=== PATIENT | female | born 1975 | race Caucasian/White ===

== ENCOUNTER 2021-04-09 12:28 | Outpatient (CLI) | payer OTHER, SELFPAY ==
--- NOTE | 2021-04-10 10:41 | WPDPFTINT ---
PFT Procedure Performed PFT Procedure Performed Spirometry with Pre/Post Bronchodilator Plethysmography (Lung Vol) Diffusing Cap (DLCO) Flow Vol Loop PFT Interpretation This is a pulmonary function test with pre and post-bronchodilator spirometry, plethysmography and diffusing capacity. The test was performed and results interpreted in accordance with the 2019 and 2005 ATS/ERS Task Force guidelines respectively using the Global Lung Function Initiative-2012 reference equations. Patient demonstrated good effort and cooperation. Reproducibility criteria were met. The quality of the spirometry maneuver was Grade A. Findings: Spirometry: The contour the inspiratory and expiratory flow tracing is normal. The pre bronchodilator FVC is 3.16 L, 97% predicted. The pre bronchodilator FEV1 is 2.60 L, 99% predicted. The FEV1: FVC ratio is 82%. The post bronchodilator FVC is 3.18 L, representing 1% increase. The post bronchodilator FEV1 is 2.64 L, representing a 2% increase. The post bronchodilator FEV1: FVC ratio is 83%. Plethysmography: The total lung capacity is 4.21 L, 89% predicted. The functional residual capacity is 1.87 L, 71% predicted. The residual volume is 1.05 L, 64% predicted. Diffusion capacity: The absolute diffusion capacity is 17.5, 79% predicted. The diffusing capacity corrected for alveolar volume is 4.33, 92% predicted. Impression: The spirometry is normal without evidence of an obstructive abnormality. There is no significant improvement after inhaling a single dose of albuterol. The lung volumes are normal. The diffusing capacity is normal. There are no prior studies for comparison
== END 2021-04-09 12:29 | disposition home or self-care (01) ==
LOC: ANHPFT 12:32
PROVIDERS: PCP Internal Medicine; Visit Provider Physician Assistant Medical
DX: R06.02 Shortness of breath (principal)
CPT/HCPCS: 94060; 94726; 94729

== ENCOUNTER 2022-04-16 19:47 | Emergency (ER) | payer OTHER, SELFPAY ==
--- NOTE | ~2022-04-16 | XR_ITS ---
EXAMINATION: XR chest 1V portable 04/16/2022 20:16 INDICATION: Left-sided chest pain PROCEDURE: AP portable chest COMPARISON: No prior studies for comparison. FINDINGS: The lungs are clear. The cardiomediastinal silhouette is within normal limits. There are no pleural effusions. There is no pneumothorax suspected. IMPRESSION: 1: NO ACUTE CARDIOPULMONARY DISEASE. Reviewed, dictated and finalized at location A. MANAGER
--- NOTE | 2022-04-16 19:50 | ECG_ITS ---
Measurements Intervals [place] Rate: 92 P: 38 DE: 154 QRS: 8 QRSD: 89 T: 5 QT: 349 QTc: 434 Interpretive Statements SINUS RHYTHM BORDERLINE T WAVE ABNORMALITY- INFERIOR LEADS BASELINE ARTIFACT- I, II, III, AVR, AVL, AVF, V4 BORDERLINE ECG NO PREVIOUS ECG AVAILABLE FOR COMPARISON Electronically Signed On 04-17-2022 8:09:24 TRANSPORT CONDUCTOR by Nikolas Cross D.O.
[2022-04-16 19:57] VITALS: BP 148/107; PULSE 92; PULSE 97; RESP 20; TEMP 36.3; O2SAT 100
--- NOTE | 2022-04-16 20:09 | ED.CHESTPAIN ---
HPI - Chest Pain General Chief Complaint: Chest Pain Stated Complaint: chest pains Time Seen by Provider: 04/16/22 19:51 Source: patient and family Mode of arrival: ambulatory Limitations: no limitations History of Present Illness HPI narrative: This is a 47-year-old female with no significant past medical history nonsmoker presents with a 2 day history of left upper chest discomfort with no radiation of her pain no diaphoresis no nausea vomiting no shortness of breath. The patient was concerned that blood pressure was elevated her diastolic blood pressure was about 105, with no cough no congestion no fever chills no abdominal pain no flank pain no dysuria. MD complaint: chest discomfort Onset (ago): day(s) Timing of current episode: constant Prior episodes: No Onset: during rest Pain location: left chest Pain radiation: none Severity: mild Quality: aching Relieving factors: nothing Exacerbating factors: palpation Related Data Home Medications Medication Instructions Recorded Confirmed No Home Medications 04/16/22 04/16/22 Allergies Allergy/AdvReac Type Severity Reaction Status Date / Time No Known Allergies Allergy Verified 04/16/22 19:57 Review of Systems Review of Systems: All systems reviewed & are unremarkable except as noted in HPI and below PMFSH Past Medical History Medical History Patient denies medical problems Exam Const: General: cooperative, healthy appearing, comfortable, no acute distress, well developed, alert and awake HENMT: Head: normal to inspection Ears: hearing grossly normal bilaterally Face/Nose/Sinus: Normal external nose present Face and sinus: normal facial exam Mouth: Yes Normal oral and palatal mucosa present and Yes mouth trauma Throat: posterior oropharynx normal Eyes: General: appearance normal, both eyes and all related structures Visual Cadet: normal visual cadet by confrontation Periorbital: periorbital findings normal Eyelids: eyelids normal Conjunctivae: conjunctivae normal Sclera: sclerae normal Pupils: Equal, round and reactive pupils present EOM: EOMs intact bilaterally Neck: Neck: normal visual inspection Thyroid: thyroid normal Carotids: normal carotid upstroke Lymphatic: no lymphadenopathy noted Chest: Chest palpation & inspection: normal inspection of the chest and normal palpation of entire chest wall Resp: Effort & Inspection: normal respiratory effort and able to speak in complete sentences Cardio: Jugular venous distension: no JVD Palpation: normal PMI Rate: regular rate Rhythm: regular rhythm GI: Inspection: normal to inspection Auscultation: normal bowel sounds Back/Spine/Pelvis: Back: no CVA tenderness Skin: General skin exam: normal color and no rashes or lesions noted Neuro: General: oriented to person and oriented to place Extrem: Right lower extremity: normal to inspection, full ROM and normal capillary refill Psych: Appearance: grossly normal and well kempt Mental Status: mental status grossly normal Course Course Emergency Course: EKG chest x-ray and labs reviewed with patient and family and everything was within normal limits patient does have a blood pressure 148/107 which is a typically high for the patient and advised her to follow-up with her primary Critical Care Time Critical Care Time Critical Care Time: No Discharge Plan Discharge Clinical Impression: Atypical chest pain Patient Disposition: Home, Self-Care Condition: Stable Instructions: Antibiotic Form, Chest Wall Pain (ED) Additional Instructions: advised to take Tylenol or Motrin for chest wall pain and follow-up with primary care physician to assess blood pressure elevation. Prescriptions: No Action No Home Medications Follow-up/Referrals: UNKNOWN,DOCTOR [Primary Care Provider] - Time of Disposition: 20:56
[2022-04-16 20:26] LABS: Basophils Absolute Auto 0.04 K/mm3 (0.00-0.10); Basophils Percent Auto 0.5 % (0.0-1.0); Eosinophils Absolute Auto 0.17 K/mm3 (0.02-0.50); Hemoglobin 12.4 g/dL (12.0-15.0); Immature Granulocyte Absolute 0.02 K/mm3 (0.00-0.00); Immature Granulocyte Percent A 0.2 % (0.0-0.0); Lymphocytes Absolute Auto 2.73 K/mm3 (1.10-4.50); Lymphocytes Percent Auto 32.7 % (18.0-42.0); Mean Corpuscular HGB Conc 32.6 g/dL (32.0-36.0); Mean Corpuscular Hemoglobin 27.3 pg (27.0-31.0); Mean Corpuscular Volume 83.5 fL (78.0-102.0); Monocytes Absolute Auto 0.44 K/mm3 (0.10-0.90); Monocytes Percent Auto 5.3 % (2.0-11.0); Neutrophils Percent Auto 59.3 % (50.0-70.0); Platelet Count Result 265 K/mm3 (150-420); Red Blood Count 4.55 M/mm3 (4.20-5.40); Red Cell Distribution Width 12.7 % (11.6-14.4); White Blood Count 8.4 K/mm3 (4.8-10.8)
[2022-04-16 20:41] LABS: D Dimer 0.41 mg/L (0.19-0.50); Partial Thromboplastin Time 25.7 SEC (23.90-30.70); Prothrombin Time 10.9 Seconds (9.50-12.10)
[2022-04-16 20:50] LABS: Alanine Aminotransferase 20 U/L (14-59); Albumin Level 3.5 g/dL (3.4-5.0); Alkaline Phosphatase 51 U/L (46-116); Anion Gap 6 mmol/L (8-16); Aspartate Amino Transferase 11 U/L (15-37); Bilirubin,Total 0.2 mg/dL (0.00-1.00); Blood Urea Nitrogen 21 mg/dL (7-18); Calcium 8.2 mg/dL (8.5-10.1); Carbon Dioxide 29 mmol/L (21-32); Chloride 103 mmol/L (98-108); Estimated CRCL calculation 61 ml/min; Estimated Glomerular Filt Rate 59; Glucose 106 mg/dL (70-99); Lipase 42 U/L (16-77); NT Pro B Type Natriuretic Pept 85 pg/mL (0-125); Osmolality Calculated 289 mOsm/kg (285-295); Potassium 3.5 mmol/L (3.5-5.1); Sodium 138 mmol/L (136-145); Total Protein 6.7 g/dL (6.4-8.2); Troponin I 9.4 ng/L (0.00-60.4)
[2022-04-16 21:01] VITALS: BP 156/100; PULSE 87; RESP 20; TEMP 36.6; O2SAT 100
== END 2022-04-16 21:08 | disposition home or self-care (01) ==
PROVIDERS: Emergency Provider Emergency Medicine
DX: R07.89 Other chest pain (principal)
CPT/HCPCS: 36415; 71045; 80053; 83690; 83880; 84484; 85025; 85380; 85610; 85730; 93005; 99284

== ENCOUNTER 2022-10-29 16:25 | Outpatient (CLI) | payer OTHER, SELFPAY ==
--- NOTE | ~2022-10-29 | MR_ITS ---
EXAMINATION: MR knee RT wo con DATE: 10/29/2022 17:59 INDICATION: R22.41 - Localized swelling, mass and lump, right lower limb, history of injury 423, cont inued swelling and pain TECHNIQUE: Magnetic resonance imaging (MRI) of the right knee was performed without intravenous contr ast. Sequences included axial PD-weighted FS FSE, coronal PD-weighted FSE and PD-weighted FS FSE, sag ittal PD-weighted FSE, and sagittal T2-weighted FS FSE. COMPARISON: X-ray knee 10/16/2022 FINDINGS: Medial compartment: Complex tear of the posterior horn with vertical and oblique components, and displacement of a articu lar sided flap of tissue medially. Diffuse severe cartilage thinning. Focal full-thickness cartilage defect on the weightbearing surface of the MFC. Tiny 4 mm mm cortical depression on the weightbearing surface of the MFC. Mild subjacent marrow edema. Lateral compartment: Meniscus intact. Moderate diffuse cartilage thinning Patellofemoral compartment: Cartilage and retinacula intact. Ligaments and tendons: The ACL is thinned, with abnormal signal at its origin and insertion. Mild proximal thickening of the MCL, with mild abnormal signal superficial and deep to the fibers. The PCL, and LCL are intact. Radha ining flexor and extensor tendons are intact. Fluid: Moderate volume joint fluid. Moderate-sized Marte's cyst.. Osseous/other: No suspicious focal or diffuse marrow signal. IMPRESSION: Complicated tear of the posterior horn, medial meniscus, with a displaced flap of meniscal tissue. Tiny osteochondral lesion on the MFC, likely old, no displaced fragment. Partial tears of the ACL and MCL. Moderate joint effusion. Moderate Marte's cyst. Reviewed, dictated and finalized at location K. IMPRESSION: Complicated tear of the posterior horn, medial meniscus, with a displaced flap of meniscal tissue. Tiny osteochondral lesion on the MFC, likely old, no displaced fragment. Partial tears of the ACL and MCL. Moderate joint effusion. Moderate Mrate's cyst.
== END 2022-10-29 16:26 | disposition home or self-care (01) ==
PROVIDERS: PCP Physician Assistant Medical; Visit Provider Physician Assistant Medical
DX: S83.241A Other tear of medial meniscus, current injury, right knee, initial encounter (principal); X58.XXXA Exposure to other specified factors, initial encounter; M25.461 Effusion, right knee; M71.21 Synovial cyst of popliteal space [Baker], right knee
CPT/HCPCS: 73721

== ENCOUNTER 2022-12-17 03:26 | Day surgery (SDC) | payer OTHER, SELFPAY ==
[2022-12-08 13:23] VITALS: BMI 35.7
--- NOTE | 2022-12-08 13:36 | PC.NURSE ---
Report to the Outpatient Waiting Room, entrance under the green pavilion located off [facility], at time _0830_ on date _[id number]_. Planned Procedure Time: _1030_. Time changes happen often and if your time is changed the preop area will call you the afternoon before. - You and your visitor will be asked to self-screen and do not enter if you have any COVID symptoms. - A mask is optional within the hospital at this time. Patients may have clear liquids (water, carbonated beverages, clear teas, apple juice) until 3 hours prior to surgery with a maximum of 20 ounces. - No food from midnight until time of surgery Take the following medications with a SIP of water the morning of surgery: __Propanolol DO NOT STOP ANY OF YOUR OTHER PRESCRIPTION MEDICATIONS PRIOR TO SURGERY ?EXCEPT THE FOLLOWING Medications to discontinue per physician ____None Date to take last dose Please no make-up, nail [place] ca[place] islander, hairspray, perfume, deodorant, or body powder the day of surgery. No jewelry (including any body piercings) or valuables the day of surgery, leave them at home. Please take a shower or bath the night before, or the morning of, surgery with an antibacterial soap. Wear comfortable, loose fitting clothing. - Jewelry must be removed prior to entering the operating room. Rings and piercings that are not removed may be cut off. - The hospital will not accept responsibility for valuables. - Please leave all valuables, including medications, at home the day of surgery. If you are going home after surgery, a licensed team truck driver must drive you home. - NO public transportation without another adult if you receive anesthesia. - We recommend that an adult stay with you for 24 hours following discharge. - We also recommend that you do not drive, make important decision, drink alcoholic beverages, or take any drugs that were not prescribed by your health care provider for at least 24 hours after your discharge time. Follow any additional instructions given to you from your surgeon. If you or anyone in your household have experienced Covid symptoms in the past week, please notify your surgeon or the nurse liaison at the phone number below for possible testing. Telephone instructions given to __Patient__and asked if any additional questions and then verbalized understanding. Patient advised to call surgeon office or pre surgery nurse liaison [phone] if any additional questions.
[2022-12-17] VITALS (7 sets, daily range): BP systolic 100–149; BP diastolic 71–106; PULSE 52–73; RESP 12–18; TEMP 36.2–36.4; O2SAT 98–100
--- NOTE | 2022-12-17 07:12 | WPDHPUPDATE1 ---
History and Physical Update Update Date/Time: 12/17/22 07:12 History and Physical has been reviewed, including an updated exam of the patient. There are NO changes in the patient's condition. Risks, benefits, and alternatives have been discussed and questions answered. Patient agrees to proceed with procedure.
[2022-12-17] MEDS: LACTATED RINGERS 1,000 ML 30 ML IV CONT ×2 (08:45→10:48)
[2022-12-17] MEDS: ACETAMINOPHEN 500 MG TABLET 1000 MG PO (09:31)
[2022-12-17] MEDS: KETOROLAC 15 MG/ML VIAL (*BKC) IV PUSH (09:31)
[2022-12-17] MEDS: SCOPOLAMINE 1.5 MG PATCH TRANSDERM (09:50)
--- NOTE | 2022-12-17 09:50 | WPDANESEPPF ---
Anes - Initial Pre Proc Eval Procedure: Operation Date: 12/17/22 10:30 Proposed Procedures p Right Knee Arthroscopy, Partial Medial Meniscectomy - Parth Caceres MD Date/Time: 12/17/22 09:50 Surgeon: Parth Caceres MD Pre Op Diagnosis: rt medial meniscus tear Patient Data Age: 47 Gender: F Height: 1.57 m Weight: 95.2 kg Last Vital Signs Temp 36.4 C L 12/17/22 09:26 Pulse 73 12/17/22 09:26 Resp 16 12/17/22 09:26 BP 149/97 H 12/17/22 09:26 Pulse Ox 98 12/17/22 09:26 O2 Del Method Room Air 12/17/22 09:26 Allergies Allergy/AdvReac Type Severity Reaction Status Date / Time naproxen [From Aleve] AdvReac upset Verified 12/17/22 09:25 stomach and off Home Medications Medication Instructions Recorded Confirmed Type propranolol 80 mg capsule,24 80 mg PO DAILY #90 caps 10/16/22 12/17/22 Rx hr,extended release hydrocodone 5 mg-acetaminophen 325 1 - 2 tablet PO Q4-6H PRN pain #30 12/17/22 Rx mg tablet tabs Patient hx anesthesia problems: none Family hx anesthesia problems: none Results Review: All pre-operative results and documents have been reviewed as part of the pre-operative evaluation. [facility] Past Medical History Medical History Family history of colon cancer Migraine (~04/2003) Patient denies medical problems Saline breast implant in situ Surgical History Surgical History No pertinent past surgical history Family History Family History Father No problems noted. Sibling Hypothyroidism Social History Social History Years smoked: 6 Smoking status: Former smoker Tobacco type: cigarettes Smoking end date: 12/08/94 Alcohol intake: current Alcohol use details: 2 times a month Substance use: never Substance use type: does not use Lack of Transportation: No Lack of Food: Never True Current Housing: I Have Housing Concerned About Future Housing: No Difficulty Paying Gas/Electric Bills: No Difficulty Paying for Meds: No Currently Unemployed: No Difficulty w/ Childcare or Family Care: No Living arrangements: with family Occupation/Education: retired Gender identity (if verbalized by the patient): Female Spiritual care concerns: No Anes - Eval Final PreProcedure Day of Procedure 12/17/22 09:50 Patient weight: obese Heart: regular rate and rhythm Lungs: clear to auscultation Airway: Mallampati scale class II Neurological: alert and oriented Last oral intake: >/= 8 hours ASA classification: II Emergent: no Anesthetic plan: proceed Anesthesia type and monitoring: general LMA and standard monitoring Results Review: All pre-operative results and documents have been reviewed as part of the pre-operative evaluation. Informed Consent: The patient's anesthetic plan and its attendant risks and benefits were discussed with the patient/family/POA. Questions were solicited and answers provided to the satisfaction of the patient/family/POA.
[2022-12-17] MEDS: ceFAZolin 2 GM/D5W 50 ML 2 GM/50 ML BAG IVPB (09:55)
[2022-12-17] MEDS: BUPIVACAINE/EPINEPHRINE 0.5% 50 ML VIAL 30 ML INFILTRATE (10:18)
--- NOTE | 2022-12-17 16:21 | P.OP_ITS ---
Procedure Note - Detailed Date of Procedure 12/17/22 Pre-op Diagnosis Right knee medial meniscus tear. Post-op Diagnosis Same Procedure Performed Arthroscopic partial medial meniscectomy right knee. Surgeon Parth Caceres MD Anesthesia General Findings Complex tear posterior horn medial meniscus. Medial femur chondromalacia grade 3, medial tibia grade 0. Lateral femur chondromalacia grade 0, lateral tibia grade 0. Patellar grade 0, trochlea grade 0. Description of Procedure The patient was identified and the surgical site confirmed and signed in the preoperative holding area. Antibiotics were started per protocol. She was brought to the operative room and transferred to the OR table. A general anesthetic was administered. Supine position with the operative lower extremity position in the leg zaragoza after placement of a well padded tourniquet. The leg support was lowered and the contralateral limb was supported with a soft bolster. The knee was prepped and draped in the usual sterile fashion. A time- out was performed. The portal sites were marked and infiltrated with 0.5% Marcaine 20 mL. The limb was exsanguinated and the tourniquet inflated to 300 mL Hg. Standard inferolateral and inferomedial portals were established. Inflow was obtained with the saline pump. The camera was introduced. Diagnostic inspection of the joint was accomplished. The meniscus was debrided with the arthroscopic shaver and punches until stable. Gentle chondroplasty was performed on the medial femoral condyle. The arthroscopic instruments were removed. The tourniquet released and wounds closed with subcutaneous 4-0 Monocryl absorbable suture. Steri strips and a sterile dressing were applied. A light elastic wrap was placed. The patient was extubated and brought to the recovery room in stable condition. Estimated Blood Loss -5.0 Drains No Complications No immediate complications Condition Stable Disposition PACU [facility] Billing Surgery - Charge Forward: Surgery Billing
== END 2022-12-17 12:50 | disposition home or self-care (01) ==
PROVIDERS: PCP Physician Assistant Medical; Visit Provider Orthopaedic Surgery
PROC: (CPT 29870; principal; 2022-12-17 10:30)
DX: S83.231A Complex tear of medial meniscus, current injury, right knee, initial encounter (principal); M94.261 Chondromalacia, right knee; W19.XXXA Unspecified fall, initial encounter; Z87.891 Personal history of nicotine dependence; E66.9 Obesity, unspecified; Z68.38 Body mass index [BMI] 38.0-38.9, adult
CPT/HCPCS: 29880; A9270; J0690; J1100; J1885; J2250; J2405; J2704; J3010; J7120

== ENCOUNTER 2023-01-27 16:30 | Outpatient (RCR) | payer OTHER, SELFPAY ==
--- NOTE | 2022-12-24 16:37 | PTOPEVAL1 ---
Assessment and note entered by Roxana Rey, PT Evaluation Information Assessment Status Evaluation Diagnosis menisectomy 12/17/22 Therapy Conditions Gait abnormality, weakness, pain in right knee Subjective Information Is sore from surgery. Difficulty walking leg was locking up . Can't do stairs yet and laundry is downstairs. Watches her grandkids during the day, will be returning to that this coming week. Used to be able to get up and down from the floor wihtout difficulty, currently is unable to do that Reported Pain Level Pain Score 1: Self Report Assessment PT Clinical Summary Pt presents s/p menisectomy 12/17/22. Gabriel's significantly reduced ROM of the right knee, abnormal gait pattern, and high reports of pain all limiting her ability to perform her ADLs and activities such as caring for her grandchildren during the week. Pt will thus benefit from physical therapy to address deficits and improve function. Plan of Care Interventions Electrical Stimulation,Gait Training,Hot Pack/Cold Pack,Manual Therapy,Neuro Re-education,Patient/ Caregiver Educati,Therapeutic Activities, Therapeutic Exercise,Ultrasound PT Services Indicated Yes Treatment Frequency and 2x weekly x 6 weeks Duration These treatments will address the objective and functional deficits as defined above. The patient will be advanced safely and appropriately in order for the patient to progress towards his/her prior level of function. Additional exercises will be introduced and as well as a comprehensive home exercise program upon discharge, if needed, ?to ensure carryover of functional gains achieved in the clinic. This treatment plan has been reviewed and agreement upon by the patient.
--- NOTE | 2022-12-24 16:39 | OPREHPOC ---
Outpatient Therapy Plan of Care This is a Multidisciplinary Plan of Care that may contain components documented by all disciplines (PT, OT, and ST.) PT Problem 1 PT Problem #1 Knowledge Deficit PT Goal 1 Goal Pt will be independent in HEP Pt will verbalize understanding of diagnosis and prognosis Target Visit 12 PT Problem 2 PT Problem #2 Pain PT Goal 1 Goal Pt will report greatest pain level at 5/10 or less Target Visit 12 PT Goal 2 Goal Pt will report resolution of pain Target Visit 24 PT Problem 3 PT Problem #3 Impaired Gait PT Goal 1 Goal Pt will demo appropriate gait with equal stance time and lynn Target Visit 12 PT Goal 2 Goal Pt will demo appropriate knee extension on initial contact phase of gait Target Visit 24 PT Problem 4 PT Problem #4 Impaired Range of Motion PT Goal 1 Goal Pt will demo AROM of 10-90 Target Visit 12 PT Goal 2 Goal Pt will demo AROM of 0-120 Target Visit 24
--- NOTE | 2023-01-11 11:22 | PCPTNOTE ---
Patient called & cancelled scheduled appointment this date due to having a migraine
--- NOTE | 2023-01-20 17:04 | PTOPPROG ---
Assessment and note entered by Roxana Rey, PT Assessment Status Progress Report Diagnosis menisectomy 12/17/22 Therapy conditions Gait, weakness, oth. abnormalities of mobility Subjective Information Pt reports has not felt any locking up in the last 1.5 weeks. Is able to get up and down from the floor but it ain't pretty , can't kneel on the knee. Is better able to get up and downs steps but is slow. Swelling still present No longer using pain medication or Ibuprofen for her knee. Return to doctor 01/28/23 Self-percieved improvement: 60-70% Assessment PT Clinical Summary Patient demos multiple areas of significant improvement including pain, ROM, and gait. She reports cont difficluty kneeling on knee, continued swelling but has met multiple short term and fci goals from evaluation. Pt goals updated, HEP updated, and pt frequency reduced. Pt to return to doctor 01/28/23. Will continue therapy with focus on next phase including strengthening and gait Plan of Care Interventions Electrical Stimulation,Gait Training,Hot Pack/Cold Pack,Manual Therapy,Neuro Re-education,Patient/ Caregiver Educati,Therapeutic Activities, Therapeutic Exercise,Ultrasound PT Services Indicated Yes Treatment Frequency and 1x weekly x 4 weeks Duration These treatments will address the objective and functional deficits as defined above. The patient will be advanced safely and appropriately in order for the patient to progress towards his/her prior level of function. Additional exercises will be introduced and as well as a comprehensive home exercise program upon discharge, if needed, ?to ensure carryover of functional gains achieved in the clinic. This treatment plan has been reviewed and agreement upon by the patient.
--- NOTE | 2023-02-01 15:17 | PTOPDC ---
Assessment and note entered by Roxana Rey, PT Assessment Status Discharge - Pt Not Present Diagnosis menisectomy 12/17/22 Subjective Information Is able to do her steps but is slow and cautious going down steps. Was able to get up and down from floor today without difficulty. Knee still feels different than left knee with walking Assessment PT Clinical Summary Pt did very well with therapy as of last visit. Called and reported she had her return to doctor appointment and was released from therapy. Thus we are closing her plan of care at this time. Thank you for this referral If was a eric getting to know Ingrid!
== END 2023-02-18 08:05 | disposition home or self-care (01) ==
LOC: ANHHIPT 16:30
PROVIDERS: PCP Physician Assistant Medical; Visit Provider Orthopaedic Surgery
DX: Z48.89 Encounter for other specified surgical aftercare (principal)
CPT/HCPCS: 97014; 97110; 97112; 97116; 97161; 97530; 97750; G0283

== ENCOUNTER 2024-12-29 10:52 | Outpatient (CLI) | payer OTHER, SELFPAY ==
--- NOTE | ~2024-12-29 | US_ITS ---
EXAMINATION: US soft tissue head and neck DATE: 12/29/2024 11:21 INDICATION: Right neck lump. TECHNIQUE: Multiple grayscale and Doppler ultrasound images of the head and neck were obtained. COMPARISON: None FINDINGS: The right submandibular gland is normal. There is no abnormal mass or lymphadenopathy in right neck in the patient's area of concern. IMPRESSION: 1. No abnormal mass or lymphadenopathy in right neck in the patient's area of concern. Reviewed, dictated and finalized at location E. IMPRESSION: 1. No abnormal mass or lymphadenopathy in right neck in the patient's area of c oncern.
--- NOTE | ~2024-12-29 | US_ITS ---
EXAMINATION: US thyroid DATE: 12/29/2024 11:22 INDICATION: Right neck lump. TECHNIQUE: Multiple ultrasound images of the thyroid were obtained. COMPARISON: None. FINDINGS: The right thyroid lobe measures 3.6 x 1.3 x 1.4 cm cm. The left thyroid lobe measures 4.3 x 1.5 x 1.37 m cm. There is normal echotexture and echogenicity throughout the thyroid gland. No discrete nodules identified. Normal vascular flow is present. IMPRESSION: 1. Normal thyroid. Reviewed, dictated and finalized at location E. IMPRESSION: 1. Normal thyroid.
--- OUTSIDE RECORDS SUMMARY | 2024-12-29 10:55 | XMS_ITS | Encounter Summary ---
Author Organization [facility] Address [address] [place] [id number] Care Team Providers Care Knockdown Worker Name Role Phone Jeanette Davenport PA-C Primary Care Provider [phone] Reason for Visit * Reason Onset Date Comments Information 05/22/2022 Encounter Details Date Type Department Care Team (Late st Contact Info) Description 05/22/2022 [employer] Message Enc [facility] [facility], [facility] [address] [place], [place] [id number] James Willingham MD [facility]. [facility] [address] [place], [place] [id number] Stress test Social History Tobacco Use Types Packs/Day Years Used Date Smoking Tobacco: Former Cigarettes 1 05/04/1988 - 03/04/1995 Smokeless Tobacco: Never Alcohol Use Standard Drinks/Week Comments Yes 1.7 (1 standard drink = 0.6 oz p ure alcohol) SELDOM PHQ-2 Answer Date Recorded PHQ-2 Score - If the patient scores above 3, please move on to questions 3-9 0 08/08/2021 Comments Unknown Sex and Gender Information Value Date Recorded Sex Assigned at Not on file Legal Sex Female 7:49 PM CDT Gender Identity Not on file Sexual Orientation Not on file COVID-19 Exposure Response Date Recorded In the last 10 days, have yo u been in contact with someone who was confirmed or suspected to have Coronavirus/COVID-19? No / Unsure 05/19/2022 10:57 AM [employer] documented as of this encounter Plan of Treatment Not on file documented as of this encounter Visit Diagnoses Not on filedocumented in this encounter Care Teams Knockdown Worker Relationship Specialty Start Date End Date Jeanette Davenport PA-C PCP - General NURSE PRACTITIONER 01/31/20 documented as of this encounter
--- OUTSIDE RECORDS SUMMARY | 2024-12-29 10:55 | XMS_ITS | Clinical Summary ---
Author Organization [facility] Address [address] [place] [id number] Care Team Providers Care Grinder Operator Name Role Phone Jeanette Davenport PA-C Primary Care Provider [phone] Allergies No known active allergies Medications No known medications Active Problems Problem Noted Date Diagnosed Date Palpitations 05/19/2022 Resolved Problems Problem Noted Date Diagnosed Date Resolved Date Screen for colon cancer 09/02/2021/07/2022 Overview (09/02/2021): Added automatically from request for surgery [id number] Family History Medical History Relation Comments Early Brother Cardiac arrest a t the age of 42 Heart Attack Brother SUICIDE Father Cancer Mother Bladder and colo n Relation Status Comments Brother Father Mother Alive Social History Tobacco Use Types Packs/Day Years Used Date Smoking Tobacco: Former Cigarettes 1 05/04/1988 - 03/04/1995 Smokeless Tobacco: Never Tobacco Cessation:Counseling Given: No Alcohol Use Standard Drinks/Week Comments Yes 1.7 [...] on file Sexual Orientation Not on file Last Filed Vital Signs Vital Sign Reading Time Taken Comments Blood Pressure 132/84 07/09/2022 9:12 AM CDT Pulse 87 07/09/2022 9:12 AM CDT Temperature 36.3 C (97.3 F) 08/08/2021 2:34 PM CDT Respiratory Rate - - Oxygen Saturation 98% 07/09/2022 9:12 AM CDT Inhaled Oxygen Concentration - - Weight 90.3 kg (199 lb) 07/09/2022 9:12 AM CDT Height 157.5 cm (5' 2) 07/09/2022 9:12 AM CDT Body Mass Index 36.4 07/09/2022 9:12 AM CDT Plan of Treatment Health Maintenance Due Date Last Done Comments Cervical Cancer Screening Pa p Smear (Age 30 to 64) Every 3 Years 1973 Colorectal Cancer Screening Colonoscopy (10 Years) 1973 Annual Physical 1976 Hepatitis C 1991 DTaP, Tdap and Td Vaccines ( 1 - Tdap) 1992 Hepatitis B Vaccines (1 of 3 - 19+ 3-dose series) 1992 Cervical Cancer Screening Pa p with HPV Testing (Age 30 to 64) Every 5 Years 2003 Cervical Cancer Screening wi th HPV 2003 Mammogram Screening 2013 Pneumococcal Vaccine: 50+ Years (1 of 1 - PCV) 2023 Zoster Vaccines (1 of 2) 2023 COVID-19 Vaccine (3 - 2024-2 6 season) 2024 02/28/2021, 02/07/2021 Meningococcal B Vaccine Aged Out No l onger eligible based on patient's age to complete this topic Meningococcal Vaccine Aged Out No carmen ana maria eligible based on patient's age to complete this topic RSV Immunizations Under 20 Months Aged Out No longer eligible b ased on patient's age to complete this topic Insurance [facility] Care Teams Grinder Operator Relationship Specialty Start Date End Date Jeanette Davenport PA-C PCP - General NURSE PRACTITIONER 01/31/20
== END 2024-12-29 10:53 | disposition home or self-care (01) ==
LOC: CHSIMG 10:53
PROVIDERS: PCP Nurse Practitioner Family; Visit Provider Nurse Practitioner Family
DX: R22.1 Localized swelling, mass and lump, neck (principal)
CPT/HCPCS: 76536

== ENCOUNTER 2025-01-27 08:43 | Day surgery (SDC) | payer OTHER, SELFPAY ==
[2025-01-01 13:37] VITALS: BMI 32.9
[2025-01-16 12:46] VITALS: BMI 33.0
--- NOTE | 2025-01-27 09:54 | WPDANESEPPF ---
Anes - Initial Pre Proc Eval Procedure: Operation Date: 01/27/25 11:00 Proposed Procedures p Screening Colonoscopy - Misael Vo MD Date/Time: 01/27/25 09:54 Surgeon: Misael Vo MD Pre Op Diagnosis: Family Hx of malignant neoplasm of digestive organ Patient Data Age: 49 Gender: F Height: 1.57 m Weight: 81.8 kg Allergies Allergy/AdvReac Type Severity Reaction Status Date / Time naproxen (From Aleve) AdvReac upset Verified 01/27/25 09:46 stomach and off Home Medications ?Medication ?Instructions ?Recorded ?Confirmed ?Type No Home Medications 01/16/25 01/16/25 History Patient hx anesthesia problems: none Family hx anesthesia problems: none Results Review: All pre-operative results and documents have been reviewed as part of the pre-operative evaluation. [facility] Past Medical History Medical History Chest pain, atypical Mass of right knee Right knee pain Screening for colon cancer Tear of medial meniscus of right knee Tear of medial collateral ligament of right knee Migraine (~04/2003) Surgical History Surgical History Hx of meniscectomy of right knee (~12/17/22) No pertinent past surgical history Family History Family History Father No problems noted. Sibling Hypothyroidism Social History Social History (Updated 12/28/24 @ 15:41 by Alexys Robles) Social History: 12/28/24 very confident with medical forms Years smoked: 6 Smoking status: Former smoker Tobacco type: cigarettes Smoking end date: 12/08/94 Alcohol intake: current Alcohol use details: 2 times a month Substance use: never Substance use type: does not use Lack of Transportation: No Lack of Food: Never True Current Housing: I Have Housing Concerned About Future Housing: No Difficulty Paying Gas/Electric Bills: No Difficulty Paying for Meds: No Currently Unemployed: No Education: High School Diploma/GED Difficulty w/ Childcare or Family Care: No Living arrangements: with family Occupation/Education: retired Gender identity (if verbalized by the patient): Female Spiritual care concerns: No Anes - Eval Final PreProcedure Day of Procedure 01/27/25 09:54 Heart: regular rate and rhythm Lungs: clear to auscultation Airway: Mallampati scale class II Neurological: alert and oriented Last oral intake: >/= 8 hours ASA classification: I Emergent: no Anesthetic plan: proceed Anesthesia type and monitoring: monitored anesthesia care Results Review: All pre-operative results and documents have been reviewed as part of the pre-operative evaluation. Informed Consent: The patient's anesthetic plan and its attendant risks and benefits were discussed with the patient/family/POA. Questions were solicited and answers provided to the satisfaction of the patient/family/POA.
[2025-01-27 09:55] VITALS: BP 129/96; PULSE 85; RESP 16; TEMP 36.5; O2SAT 100; BMI 31.9
[2025-01-27] MEDS: LACTATED RINGERS 1,000 ML 150 ML IV CONT (10:11)
--- NOTE | 2025-01-27 11:00 | P.HP_ITS ---
H&P: HPI History of Present Illness Date/Time: 01/27/25 11:00 Chief Complaint: Family history of colon cancer Narrative: This patient has family history of colorectal cancer. her mother had colorectal cancer at age 60. This is her 1st colonoscopy. Review of Systems Review of Systems: All systems reviewed & are unremarkable except as noted in HPI and below PMFSH Past Medical History Medical History Chest pain, atypical Mass of right knee Right knee pain Screening for colon cancer Tear of medial meniscus of right knee Tear of medial collateral ligament of right knee Migraine (~04/2003) Surgical History Surgical History Hx of meniscectomy of right knee (~12/17/22) No pertinent past surgical history Family History Family History Father No problems noted. Sibling Hypothyroidism Social History Social History (Updated 12/28/24 @ 15:41 by Alexys Robles) Social History: 12/28/24 very confident with medical forms Years smoked: 6 Smoking status: Former smoker Tobacco type: cigarettes Smoking end date: 12/08/94 Alcohol intake: current Alcohol use details: 2 times a month Substance use: never Substance use type: does not use Lack of Transportation: No Lack of Food: Never True Current Housing: I Have Housing Concerned About Future Housing: No Difficulty Paying Gas/Electric Bills: No Difficulty Paying for Meds: No Currently Unemployed: No Education: High School Diploma/GED Difficulty w/ Childcare or Family Care: No Living arrangements: with family Occupation/Education: retired Gender identity (if verbalized by the patient): Female Spiritual care concerns: No Meds Home Medications and Allergies Home Medications ?Medication ?Instructions ?Recorded ?Confirmed ?Type No Home Medications 01/16/25 01/16/25 H istory Allergies Allergy/AdvReac Type Severity Reaction Status Date / Time naproxen (From Aleve) AdvReac upset Verified 01/27/25 09:46 stomach and off Vital Signs Vital Signs - 24 hr 01/27/25 09:55 Temperature 97.7 F Pulse Rate 85 Respiratory Rate 16 Blood Pressure 129/96 H Pulse Oximetry 100 Oxygen Delivery Room Air Exam Const: General: cooperative and healthy appearing Resp: Effort & Inspection: normal respiratory effort and able to speak in complete sentences Auscultation: clear to auscultation bilaterally Cardio: Rate: regular rate Rhythm: regular rhythm GI: Inspection: normal to inspection GI Palp: No No hepatosplenomegaly present Auscultation: normal bowel sounds Rectal Exam: deferred Skin: General skin exam: normal color Psych: Appearance: grossly normal Mental Status: mental status grossly normal Assessment and Plan Assessment and plan (1) Family history of colon cancer: Code(s): Z80.0 - Family history of malignant neoplasm of digestive organs Status: Acute Assessment and Plan: The patient is deemed a good candidate for the procedure. Consent signed. Will proceed.
[2025-01-27 11:23] VITALS: BP 112/83; PULSE 85; RESP 14; O2SAT 100
[2025-01-27 11:33] VITALS: BP 123/88; PULSE 70; RESP 17; O2SAT 100
== END 2025-01-27 11:51 | disposition home or self-care (01) ==
PROVIDERS: PCP Nurse Practitioner Family; Referring Provider Nurse Practitioner Family; Visit Provider Internal Medicine Gastroenterology
PROC: 0DJD8ZZ Inspection of Lower Intestinal Tract, Via Natural or Artificial Opening Endoscopic (ICD-10-PCS; CPT 45378; principal; 2025-01-27 11:00)
DX: Z12.11 Encounter for screening for malignant neoplasm of colon (principal); Z80.0 Family history of malignant neoplasm of digestive organs
CPT/HCPCS: 45378